=== PATIENT | female | born 1950 | race Caucasian/White ===

== ENCOUNTER 2016-11-26 07:50 | Day surgery (SDC) | payer OTHER ==
[2016-11-19 18:33] VITALS: BMI 23.1
[2016-11-26 08:06] VITALS: TEMP 97.5
[2016-11-26] MEDS ORDERED: PROPOFOL 20 ML ONE ×2 (08:17)
[2016-11-26 09:41] VITALS: BP 134/50; PULSE 58
--- NOTE | 2016-11-27 15:55 | PATH ---
Surgical Pathology Report Patient Name: ARABELLA JANG [facility]. Rec. #: [id number] /Age/Gender: 1950 (Age: 66) / F Account: [id number] Location: PENDING SALE TO [facility]-ENDOSCOPY Taken: 11/26/2016 Received: 11/26/2016 Reported: 11/27/2016 Physicians: Jaren Gonsalez M.D. Specimen(s) Received A: BX DUODENUM B: BX ANTRUM Clinical History GERD, history of colonic polyps Mild gastritis, rule out celiac disease Final Diagnosis A. DUODENUM, BIOPSY: DUODENAL MUCOSA WITH NO PATHOLOGIC FINDINGS. Note: Features suggestive of celiac disease are not identified in this biopsy. B. ANTRUM, BIOPSY: MILD CHRONIC GASTRITIS. IMMUNOSTAIN IS NEGATIVE FOR H. PYLORI ORGANISMS. Electronically Signed Mag Britton M.D. Gross Description A. Received in formalin, labeled "duodenum" are 2 abebe, irregular portions of soft tissue measuring 0.3 and 0.4 cm. in greatest dimension. The specimens are submitted in toto in one cassette. B. Received in formalin, labeled "antrum" are 3 abebe, irregular portions of soft tissue ranging from 0.1-0.2 cm. in greatest dimension. The specimens are submitted in toto in one cassette. 11/26/201611/26/2016
== END 2016-11-26 09:40 | disposition home or self-care (01) ==
LOC: FASU-ENDO 07:50
PROVIDERS: ATTEND Internal Medicine Gastroenterology
PROC: 0DB68ZX Excision of Stomach, Via Natural or Artificial Opening Endoscopic, Diagnostic (ICD-10-PCS; 2016-11-26)
PROC: 0DJD8ZZ Inspection of Lower Intestinal Tract, Via Natural or Artificial Opening Endoscopic (ICD-10-PCS; principal; 2016-11-26 08:28)
PROC: 0DB98ZX Excision of Duodenum, Via Natural or Artificial Opening Endoscopic, Diagnostic (ICD-10-PCS; 2016-11-26 08:28)
DX: Z12.11 Encounter for screening for malignant neoplasm of colon (principal); K29.50 Unspecified chronic gastritis without bleeding; R12 Heartburn
CPT/HCPCS: 43239; G0121; 88305-TC; 88342-TC